=== PATIENT | male | born 1985 | race Caucasian/White ===

== ENCOUNTER 2024-03-03 06:58 | Emergency (ER) | payer BC, SELFPAY ==
[2024-03-03 07:01] VITALS: BP 119/86
--- NOTE | 2024-03-03 07:20 | ED.GENMED ---
History of Present Illness
<CEASAR Francisco - Last Filed: 03/03/24 10:19>
General
Chief Complaint: Urinary Symptoms
Source: patient
Exam Limitations: none
Time Seen by Provider: 03/03/24 07:04
Nursing documentation reviewed up to this point in time: agreed with
History of Present Illness
History of Present Illness:
Patient is a 38 yr old male who presents today for evaluation. For the past week patient has noticed some intermittent difficulty getting his urine out in the morning and some intermittent left flank pain. This morning however he had increased
difficulty getting his urine out noticed hematuria. He has had waves of nausea with this and today felt the chills.
No prior history of kidney stone.
Pt reports in the past he has had some issues with feeling like he can not completely empty his bladder.
Review of Systems
<CEASAR Francisco - Last Filed: 03/03/24 10:19>
Review of Systems
Allergies reviewed?: Yes
All Other Systems: ROS reviewed and negative except as documented in HPI and ROS
Constitutional: Reports chills (chills this am ); Denies fever or fatigue
Respiratory: Reports no symptoms
Cardiac: Reports no symptoms
ABD/GI: Reports no symptoms
: Reports flank pain, difficulty voiding and bleeding
Musculoskeletal: Reports no symptoms
Skin: Reports no symptoms
Neurological: Reports no symptoms
Psychiatric: Reports no symptoms
Phy Exam
<CEASAR Francisco - Last Filed: 03/03/24 10:19>
General Physical Exam
General Presentation: no apparent distress
General age: appears stated age
General Skin: warm and dry
General Habitus: normal
General Mental: alert
General Hydration: appears well hydrated
Gastrointestinal Exam
Gastrointestinal Exam: non tender and soft
Neurological Exam
Neurological Exam: alert and oriented x3
Musculoskeletal Exam
Musculoskeletal Exam: full ROM
Skin Exam
Skin Exam: normal color and warm/dry
Psychiatric Exam
Psychiatric Exam: normal mood/affect
Course
<CEASAR Francisco - Last Filed: 03/03/24 10:19>
Orders/Labs/Results
Orders:
Orders
03/03/24 07:18
CT Abd/pel Without Iv Or Oral Urgent
Comment:
Reason For Exam: left flank pain/hematuria
IV Insert/Care/Rem.- Treatment PRN
0.9% Sodium Chloride 1000 ml [Nss] 1,000 ml IV BOLUS
0.9% Sodium Chloride 1000 ml [Nss] 1,000 ml IV BOLUS
03/03/24 07:29
Basic Metabolic Panel Urgent
Complete Blood Count/With Diff Urgent
03/03/24 08:56
Urinalysis Reflex To Culture Urgent
Date Specimen was Collected: 03/03/24
Time Specimen was Collected: 07:20
Abnormal Lab Results
03/03/24
07:29
Absolute Monos (auto) 0.9 H 10^3/uL
(0.1-0.6)
Monocytes % 10.9 H %
(1.7-9.3)
Eosinophils % 6.3 H %
(0-6)
BUN 21 H mg/dl
(9-20)
Glucose 100 H mg/dl
(70-99)
03/03/24 07:29
03/03/24 07:29
Vital Signs
Initial and Last Documented VS:
Initial Vital Signs
Pulse Resp BP Pulse Ox
65 18 119/86 100
03/03/24 07:01 03/03/24 07:01 03/03/24 07:01 03/03/24 07:01
Last Documented Vital Signs
Temp Pulse Resp BP Pulse Ox
97.5 F 65 18 133/102 99
03/03/24 07:37 03/03/24 07:01 03/03/24 07:01 03/03/24 10:00 03/03/24 10:01
Boiler House Operator consulted with Physician
Boiler House Operator consulted with physician?: Yes
Name of Physician Consulted: Reilly
<Kahlil Grover MD - Last Filed: 03/03/24 10:47>
Orders/Labs/Results
Orders:
Orders
03/03/24 07:18
CT Abd/pel Without Iv Or Oral Urgent
Comment:
Reason For Exam: left flank pain/hematuria
IV Insert/Care/Rem.- Treatment PRN
0.9% Sodium Chloride 1000 ml [Nss] 1,000 ml IV BOLUS
0.9% Sodium Chloride 1000 ml [Nss] 1,000 ml IV BOLUS
03/03/24 07:29
Basic Metabolic Panel Urgent
Complete Blood Count/With Diff Urgent
03/03/24 08:56
Urinalysis Reflex To Culture Urgent
Date Specimen was Collected: 03/03/24
Time Specimen was Collected: 07:20
Abnormal Lab Results
03/03/24
07:29
Absolute Monos (auto) 0.9 H 10^3/uL
(0.1-0.6)
Monocytes % 10.9 H %
(1.7-9.3)
Eosinophils % 6.3 H %
(0-6)
BUN 21 H mg/dl
(9-20)
Glucose 100 H mg/dl
(70-99)
03/03/24 07:29
03/03/24 07:29
Vital Signs
Initial and Last Documented VS:
Initial Vital Signs
Pulse Resp BP Pulse Ox
65 18 119/86 100
03/03/24 07:01 03/03/24 07:01 03/03/24 07:01 03/03/24 07:01
Last Documented Vital Signs
Temp Pulse Resp BP Pulse Ox
97.5 F 65 18 133/102 99
03/03/24 07:37 03/03/24 07:01 03/03/24 07:01 03/03/24 10:00 03/03/24 10:01
<CEASAR Francisco - Last Filed: 03/03/24 10:19>
MDM/Problems Addressed
Differential Diagnosis Includes:
Not limited to UTI pyelonephritis renal stone
MDM/Problems Addressed:
Patient is a 38-year-old male who presented with hematuria After several days of some difficulty feeling the sensation and is not emptying his bladder along with some mild left flank pain. Patient present here awake alert no acute distress abdomen
soft nontender no CVA tenderness. He is afebrile. He is not tachycardic. His white count is normal his kidney function is normal potassium clotted however with normal function renal function this was not repeated. Urinalysis however is negative
and CAT scan is negative. Case discussed ED physician who did rectal exam and is possible that this is mild prostatitis versus recently passed stone. Will have patient follow-up with urology will give patient prescription of antibiotics to take if
symptoms do not prove in the next 24 hours however discussed close outpatient follow with urology. Not limited
<CEASAR Francisco - Last Filed: 03/03/24 10:19>
*Radiology
Radiology exam reviewed: radiology read reviewed
*Critical Care Note
Total Time (30-74mins, 75-104mins- exclusive of procedures): Not Applicable
ED Attending Note
<CEASAR Francisco - Last Filed: 03/03/24 10:19>
-
Portions of this chart may have been created with voice recognition software.� Occasional wrong word or��sound alike� substitutions may have occurred due to the inherent limitations of voice recognition software.
<Kahlil Grover MD - Last Filed: 03/03/24 10:47>
ED Attending Note
Patient seen and examined by attending physician: Yes
I performed the substantive portion of visit, reviewed & personally made and approve the management plan that is documented in note by myself or OMKAR.: Yes
ED Attending Note:
38-year-old male complaining of urinary urgency mild burning for the last 24 hours. Apparently has had this mildly in the past. Comins there might be some blood in the urine this morning. Noted mild positive blood on the toilet seat. No clots.
On exam patient is nontoxic in no distress. Warm and dry. Perfusing well. Lungs clear and equal. Heart regular rate and rhythm no murmur. Abdomen soft and nontender. Genitalia within normal limits. Warm and dry. Perfusing well.
Rectal exam showed a slightly boggy prostate although smooth. Mild tenderness on exam. Good rectal tone. Labs are stable. CT negative. Urine negative.
Possible etiologies would be mild prostatitis versus passed kidney stone versus dysuria of unknown etiology. Interestingly no blood in the urine at this time. Prescription was given for antibiotics although fairly low suspicion that this is truly
a prostatitis. Will await 24 hours to see if symptoms are self resolved. Will also follow-up with urology.
Discharge Plan
Departure
Patient Disposition: Home (Routine Discharge)
Date of Disposition: 03/03/24
Time of Disposition: 10:15
Patient with high blood pressure during this ER visit?: No
Covid-19: Not Applicable
Discharge Problem:
hematuria resolved
Referrals:
Trevor Dinh MD [Family Provider] -
Abner Yang Jr., MD [Active] -
Activity Restrictions/Additional Instructions:
As discussed stay well-hydrated. Your urinalysis was negative for blood here in the ER. You were given a prescription for antibiotics to take only if symptoms do not completely resolve in the next 24 hours. Is very important however that you
follow-up with urology. Please call today to make an appointment in the next several days. Return if any worse symptoms if increased hematuria back pain nausea vomiting fever chills.
Interventions
Interventions:
*Risk Screen - Suicide Last Done: 03/03/24 07:01
*Neglect/Abuse Screening Last Done: 03/03/24 07:01
Discharge Date and Time
Print Language: MAURITANIAN
[2024-03-03] MEDS: NSS 1000 IV (07:31)
[2024-03-03 07:34] VITALS: BP 112/74
[2024-03-03 07:40] LABS: % Basophils 1.2 % (0-2); % Eosinophils 6.3 % (0-6); % Immature Granulocytes 0.3 % (0-0.5); % Lymphocytes 33.4 % (20.5-51.1); % Monocytes 10.9 % (1.7-9.3); % Neutrophils 47.9 % (42.2-75.2); Absolute Basophils 0.1 10^3/uL (0-0.2); Absolute Eosinophils 0.5 10^3/uL (0-0.7); Absolute Lymphocytes 2.6 10^3/uL (1.2-3.4); Absolute Monocytes 0.9 10^3/uL (0.1-0.6); Absolute Neutrophils 3.7 10^3/uL (1.4-6.5); Hemoglobin 16.5 g/dL (13.0-18.0); Mean Corp Hgb Conc. 33.7 g/dL (33.0-37.0); Mean Corpuscular Hgb 28.8 pg (27.0-31.0); Mean Corpuscular Volume 85.7 fL (80.0-94.0); Mean Platelet Volume 10.1 fL (7.4-10.4); Nucleated Red Blood Cells % 0 % (-); Platelet Count 244 10^3/uL (130-400); Red Blood Cell Count 5.72 10^6/uL (4.70-6.10); Red Cell Dist. Width 12.8 % (11.5-14.5); White Blood Cell Count 7.8 10^3/uL (4.8-10.8)
[2024-03-03 08:01] LABS: Sodium 140 mmol/L (135-145)
[2024-03-03 08:02] LABS: Blood Urea Nitrogen 21 mg/dl (9-20); Calcium 9.4 mg/dl (8.4-10.2); Carbon Dioxide 25 mmol/L (22-30); Chloride 104 mmol/L (98-107); Glucose 100 mg/dl (70-99); eGFR > 60.00
[2024-03-03 09:00] VITALS: BP 115/76
[2024-03-03 09:09] LABS: Urine Albumin Negative (Neg - Trace); Urine Bilirubin Negative (Negative); Urine Character Clear (Clear); Urine Color Yellow; Urine Glucose Negative (Negative); Urine Ketone Negative (Negative); Urine Leukocyte Negative (Negative); Urine Nitrite Negative (Negative); Urine Occult Blood Negative (Negative); Urine Urobilinogen Negative (Neg - 1+)
[2024-03-03 10:00] VITALS: BP 133/102
== END 2024-03-03 10:59 | disposition home or self-care (01) ==
LOC: EMR 06:58
PROVIDERS: Nurse Practitioner; EMERGENCY PHYSICIAN Emergency Medicine; FAMILY PHYSICIAN Family Medicine
DX: R31.9 Hematuria, unspecified (principal); R39.15 Urgency of urination
CPT/HCPCS: 99284; 96360; 74176; 80048; 81003; 85025